=== PATIENT | male | born 1980 | race Caucasian/White ===

== ENCOUNTER 2019-04-18 20:31 | Emergency (ER) | payer OTHER ==
[~2019-04-18] VITALS: Ht 177.8 cm; Wt 68.6 kg
[~2019-04-18 20:31] MED LIST: ACET500C5 PO; HYDR-3498 PO; IBUP-1542 PO; NAPR-985 PO
[2019-04-18 20:38] VITALS: Ht 177.8 cm; Wt 68.6 kg
[2019-04-18] MEDS ORDERED: ACETAMINOPHEN 325 MG TAB PO STA (21:05)
[2019-04-18] MEDS ORDERED: SODIUM CHLORIDE 0.9% 1L BAG IV* STA (21:05)
[2019-04-18 23:35] VITALS: BP 115/59; PULSE 66; RESP 18
== END 2019-04-18 23:36 | disposition home or self-care (01) ==
LOC: FTE 20:31
DX: R50.9 Fever, unspecified (principal); R42 Dizziness and giddiness
CPT/HCPCS: 71045; 80053; 81001; 82550; 85025; 93005; J7030; Z7502; Z7610; 81003